=== PATIENT | female | born 1970 | race Caucasian/White ===

== ENCOUNTER → 2020-02-23 | Outpatient (CLI) | payer OTHER ==
[~2020-02-23] MED LIST: CALC200T3 PO
[2020-02-23 09:41] LABS: BASOPHILS % (AUTO) 1 % (0-1); EOSINOPHILS % (AUTO) 2 % (1-7); LYMPHOCYTES % (AUTO) 40 % (22-44); MEAN CORPUSCULAR HEMOGLOBIN 32.1 pg (27.0-34.8); MEAN CORPUSCULAR HGB CONC 34.6 g/dL (32.4-35.8); MEAN PLATELET VOLUME 7.4 fL (7.4-10.4); MONOCYTES % (AUTO) 10 % (2-9); NEUTROPHILS % (AUTO) 47 % (42-75); PLATELET COUNT 285 x10^3/uL (130-400); RED CELL DISTRIBUTION WIDTH 12.2 % (9.6-15.2)
[2020-02-23 09:44] LABS: MD NO
[2020-02-23 09:53] LABS: CALCIUM 9.5 mg/dL (8.5-10.1); CHLORIDE 106 mmol/L (98-107)
[2020-02-23 09:57] LABS: ANION GAP 7 mmol/L (5-15); CREATININE 0.95 mg/dL (0.55-1.02)
[2020-02-26 09:31] LABS: ALANINE AMINOTRANSFERASE 38 U/L (12-78); ALBUMIN 4.2 g/dL (3.4-5.0); ALKALINE PHOSPHATASE 59 U/L (45-117); BILIRUBIN,TOTAL 0.9 mg/dL (0.2-1.0); TOTAL PROTEIN 8.1 g/dL (6.4-8.2)
== END | disposition home or self-care (01) ==
LOC: STAR 08:06
PROVIDERS: ATTEND Obstetrics & Gynecology
DX: Z01.812 Encounter for preprocedural laboratory examination (principal); Z20.828 Contact with and (suspected) exposure to other viral communicable diseases; R10.2 Pelvic and perineal pain; D25.9 Leiomyoma of uterus, unspecified
CPT/HCPCS: 36415; 80048; 80053; 85025; 87635; 93005

== ENCOUNTER 2020-02-28 05:34 | Inpatient (IN) | payer OTHER ==
[~2020-02-28] VITALS: Ht 167.6 cm; Wt 72.0 kg
[2020-02-28] MEDS ORDERED: BUPIVACAINE/PF 0.25% ONE ×2 (06:10→09:27)
[2020-02-28] MEDS ORDERED: FLUORESCEIN SODIUM 500 MG/5 ML ONE (06:11)
[2020-02-28] MEDS ORDERED: VASOPRESSIN 20 UNIT/ML, 1ML ONE (06:11)
[2020-02-28] MEDS ORDERED: EPINEPHRINE 1 MG/ML, 1ML ONE ×2 (06:13→09:26)
[2020-02-28] MEDS ORDERED: CHLORHEXIDINE 15 ML UDC ONE (06:21)
[2020-02-28] MEDS ORDERED: CHLORHEXIDINE 15 ML UDC MM ONE (06:30)
[2020-02-28] MEDS ORDERED: FENTANYL PF 250 MCG/5ML ONE (06:44)
[2020-02-28] MEDS ORDERED: MIDAZOLAM 1 MG/ML, 2ML ONE (06:44)
[2020-02-28] MEDS ORDERED: LIDOCAINE-MPF 2% ,5ML ONE (06:44)
[2020-02-28] MEDS ORDERED: ACETAMINOPHEN 500 MG TABLET ONE (06:48)
[2020-02-28 06:49] LABS: HCG UR SG 1.024 (1.003-1.030)
[2020-02-28] MEDS ORDERED: EPHEDRINE 50 MG/ML, 1ML IVPush PRN (07:00)
[2020-02-28] MEDS ORDERED: ACETAMINOPHEN 500 MG TABLET PO ONE (07:00)
[2020-02-28] MEDS ORDERED: MEPERIDINE/PF 25MG/0.5ML IVPush PRN (07:00)
[2020-02-28] MEDS ORDERED: OXYcodone 5 MG/5 ML ORAL.SOL UDC PO PRN (07:00)
[2020-02-28] MEDS ORDERED: hydrALAzine 20 MG/ML, 1ML IV PRN (07:00)
[2020-02-28] MEDS ORDERED: ONDANSETRON 2MG/ML, 2ML IVPush PRN (07:00)
[2020-02-28] MEDS ORDERED: PROMETHAZINE 25 MG/ML, 1ML IVPush PRN (07:00)
[2020-02-28] MEDS ORDERED: LABETALOL 5MG/ML, 20ML IV PRN (07:00)
[2020-02-28] MEDS ORDERED: CEFAZOLIN 1,000 MG ONE (07:46)
[2020-02-28] MEDS ORDERED: SUCCINYLCHOLINE 20 MG/ML, 10ML ONE (07:46)
[2020-02-28] MEDS ORDERED: PROPOFOL 10 MG/ML, 20ML ONE (07:46)
[2020-02-28] MEDS ORDERED: KETOROLAC 30 MG/1 ML ONE (07:46)
[2020-02-28] MEDS ORDERED: ROCURONIUM 10MG/ML,5ML ONE (07:46)
[2020-02-28] MEDS ORDERED: ONDANSETRON 2MG/ML, 2ML ONE (07:46)
[2020-02-28] MEDS ORDERED: SUGAMMADEX 200 MG/2 ML IVPush ONE ×2 (07:46→07:47)
[2020-02-28] MEDS ORDERED: DEXAMETHASONE 4 MG/ML, 1ML ONE ×2 (07:46→09:26)
[2020-02-28] MEDS ORDERED: EPHEDRINE 50 MG/ML, 1ML ONE (08:02)
[2020-02-28] MEDS ORDERED: SODIUM CHLORIDE 0.9% 200 ML ONE (08:28)
[2020-02-28] MEDS ORDERED: FENTANYL PF 100 MCG/2ML ONE (10:54)
[2020-02-28] MEDS ORDERED: HYDROmorphone 1 MG/ML, 1ML INJ ONE (10:55)
[2020-02-28] MEDS: FENTANYL PF 100 MCG/2ML IV PRN ×2 (10:57→11:07)
[2020-02-28] MEDS ORDERED: PROMETHAZINE 25 MG/ML, 1ML ONE (11:04)
[2020-02-28] MEDS: HYDROmorphone 1 MG/ML, 1ML INJ IVPush PRN ×2 (11:24→11:35)
[2020-02-28 12:30] VITALS: BP 105/66
[2020-02-28] MEDS ORDERED: ONDANSETRON 2MG/ML, 2ML IV PRN (13:00)
[2020-02-28] MEDS ORDERED: ACETAMINOPHEN 325 MG TABLET PO PRN (13:00)
[2020-02-28] MEDS ORDERED: ACETAMINOPHEN 650 MG SUPP PR PRN (13:00)
[2020-02-28] MEDS: POTASSIUM CHLORIDE 20 MEQ in D5%-0.45% NACL 1,000 ML IV SCH (17:13)
[2020-02-28] MEDS: IBUPROFEN 600 MG TABLET PO SCH ×2 (17:17→21:33)
[2020-02-28] MEDS: SIMETHICONE 80 MG CHEW TAB PO SCH ×2 (17:17→21:33)
[2020-02-28 20:39] VITALS: BP 92/51
[2020-02-28] MEDS ORDERED: ZOLPIDEM 5MG TABLET PO PRN (21:00)
[2020-02-28] MEDS: DOCUSATE 100 MG CAPSULE PO SCH (21:33)
[2020-02-28] MEDS: OXYcodone 5 MG/5 ML ORAL.SOL UDC PO PRN (21:34)
[2020-02-29 00:16] VITALS: BP 93/52
[2020-02-29] MEDS: POTASSIUM CHLORIDE 20 MEQ in D5%-0.45% NACL 1,000 ML IV SCH ×2 (00:46→08:00)
[2020-02-29 03:57] VITALS: BP 92/54
[2020-02-29] MEDS: OXYcodone 5 MG/5 ML ORAL.SOL UDC PO PRN ×2 (04:46→10:04)
[2020-02-29] MEDS: IBUPROFEN 600 MG TABLET PO SCH ×2 (04:47→10:35)
[2020-02-29 06:49] VITALS: BP 104/70
[2020-02-29] MEDS: DOCUSATE 100 MG CAPSULE PO SCH (09:11)
[2020-02-29] MEDS: SIMETHICONE 80 MG CHEW TAB PO SCH (09:11)
[2020-02-29] MEDS ORDERED: ONDA4TAB7 PO (12:22)
[2020-02-29] MEDS ORDERED: OXYC-302 PO (12:22)
[2020-02-29] MEDS ORDERED: IBUP-1222 PO (12:24)
[2020-02-29 12:25] VITALS: BP 101/67
== END 2020-02-29 13:46 | disposition home or self-care (01) | DRG 743 ==
LOC: OUT 05:34 → 4NE 12:33 → ORIP 12:38 → OUT 13:03 → 4NE 17:18 → DCLOUNGE 02-29 13:38
PROVIDERS: ADMIT Obstetrics & Gynecology; ATTEND Obstetrics & Gynecology
PROC: 3E0T3BZ Introduction of Anesthetic Agent into Peripheral Nerves and Plexi, Percutaneous Approach (ICD-10-PCS; 2020-02-27)
PROC: 0UT94ZZ Resection of Uterus, Percutaneous Endoscopic Approach (ICD-10-PCS; principal; 2020-02-28 07:00)
PROC: 0UT74ZZ Resection of Bilateral Fallopian Tubes, Percutaneous Endoscopic Approach (ICD-10-PCS; 2020-02-28 07:00)
DX: D25.9 Leiomyoma of uterus, unspecified (principal); N94.10 Unspecified dyspareunia; Z80.1 Family history of malignant neoplasm of trachea, bronchus and lung; Z82.0 Family history of epilepsy and other diseases of the nervous system; Z90.710 Acquired absence of both cervix and uterus; Z88.5 Allergy status to narcotic agent; Z88.6 Allergy status to analgesic agent
CPT/HCPCS: 36415; J3490; 81025; 86850; 86900; 88307; G0378; J0171; J0690; J1100; J1170; J1885; J2250; J2405; J2550; J2704; J3010; J3480; J0330